=== PATIENT | female | born 1985 | race Caucasian/White ===

== ENCOUNTER 2024-11-06 05:51 | Day surgery (SDC) | payer OTHER ==
[2024-11-06] MEDS ORDERED: POVIDONE-IODINE 118 ML BOTT TOP ONE (08:00)
[2024-11-06] MEDS ORDERED: OXYTOCIN 10 UNITS/ML VIAL IV ONE (08:00)
== END 2024-11-06 11:30 | disposition home or self-care (01) ==
LOC: CIR.AMB 05:51
PROVIDERS: ATTEND Specialist
DX: O02.1 Missed abortion (principal)

== ENCOUNTER 2025-03-29 06:30 | Day surgery (SDC) | payer OTHER ==
[2025-03-18 13:46] VITALS: BP 113/78
[~2025-03-29] VITALS: Ht 165.1 cm; Wt 66.7 kg
[2025-03-29] MEDS ORDERED: POVIDONE-IODINE 118 ML BOTT TOP ONE (13:45)
[2025-03-29] MEDS ORDERED: IBU600 MG PO (14:24)
[2025-03-29] MEDS ORDERED: PREMARIN1.25 MG PO (14:25)
[2025-03-29] MEDS ORDERED: AMOX1TAB5 PO (14:28)
[2025-03-29] MEDS ORDERED: MORPHINE SULFATE 4 MG/ML VIAL IV ONE ×2 (14:30→15:40)
[2025-03-29 22:31] VITALS: BP 101/61; O2SAT 100
== END 2025-03-29 16:35 | disposition home or self-care (01) ==
LOC: CIR.AMB 06:30
PROVIDERS: ATTEND Obstetrics & Gynecology Gynecology
DX: N85.6 Intrauterine synechiae (principal)